=== PATIENT | male | born 1980 | race Caucasian/White ===

== ENCOUNTER 2020-12-15 01:56 | Inpatient (IN) | payer OTHER ==
[~2020-12-15] VITALS: Ht 182.9 cm; Wt 106.6 kg
[2020-12-15] MEDS ORDERED: PERCOCET 5/325 T1 EA PO (11:12)
[2020-12-15] MEDS ORDERED: ZOFRAN 4 MG TAB4 MG PO (11:13)
[2020-12-15] MEDS ORDERED: FLOMAX 0.4 MG0.4 MG PO (15:02)
== END 2020-12-15 17:32 | disposition home or self-care (01) | DRG 694 ==
LOC: PROG CARE 01:56
PROVIDERS: Internal Medicine; ADMIT Internal Medicine
DX: N13.2 Hydronephrosis with renal and ureteral calculous obstruction (principal); E66.9 Obesity, unspecified; F17.200 Nicotine dependence, unspecified, uncomplicated; Z20.822 Contact with and (suspected) exposure to COVID-19; E87.5 Hyperkalemia; N13.0 Hydronephrosis with ureteropelvic junction obstruction; Z68.30 Body mass index [BMI] 30.0-30.9, adult; Z83.3 Family history of diabetes mellitus; Z72.89 Other problems related to lifestyle
CPT/HCPCS: 36415; 74018; 80053; 80307; 81001; 82550; 82553; 84484; 84550; 86140; J1885; U0002